=== PATIENT | female | born 1980 | race Caucasian/White ===

== ENCOUNTER 2017-09-27 00:14 | Emergency (ER) | payer OTHER ==
[~2017-09-27] VITALS: Ht 170.2 cm; Wt 88.5 kg
[2017-09-27] MEDS ORDERED: PREDNISONE50 MG PO (00:33)
[2017-09-27] MEDS ORDERED: PEPCID40 MG PO (00:33)
[2017-09-27] MEDS ORDERED: CLARITIN10 MG PO (00:33)
[2017-09-27 02:21] VITALS: BP 100/54
== END 2017-09-27 02:22 | disposition home or self-care (01) ==
LOC: ER 00:14
DX: T78.1XXA Other adverse food reactions, not elsewhere classified, initial encounter (principal); L50.9 Urticaria, unspecified; X58.XXXA Exposure to other specified factors, initial encounter